=== PATIENT | male | born 1965 | race African-American/Black ===

== ENCOUNTER 2018-12-12 10:51 | Outpatient (CLI) | payer OTHER ==
--- NOTE | 2018-12-12 11:41 | RAD ---
TWO VIEWS CHEST: Date: 12-12-18 Provided Clinical History: Bronchitis. FINDINGS: Cardiac and mediastinal silhouette is within normal limits. Lungs appear clear. No pleural fluid or p neumothorax apparent. IMPRESSION: No evidence for an acute cardiopulmonary process. POS: [facility]
== END 2018-12-12 10:52 | disposition home or self-care (01) ==
LOC: RAD-FRANK 10:51
PROVIDERS: ATTEND Nurse Practitioner Family
DX: J20.9 Acute bronchitis, unspecified (principal)
CPT/HCPCS: 71046